=== PATIENT | male | born 1950 | race Caucasian/White ===

== ENCOUNTER 2019-10-01 18:06 | Emergency (ER) | payer MEDICARE ==
[~2019-10-01] VITALS: Ht 177.8 cm; Wt 86.2 kg
--- NOTE | 2019-10-01 18:06 | NUR ---
PT PLACED IN BED 12 BY EMS.
[2019-10-01 18:10] VITALS: BP 175/88
--- NOTE | 2019-10-01 18:24 | NUR ---
BIB AMBULANCE C/O DIZZINESS AND ASYMPTOMATIC HTN X 1 HOUR AGO PMH: HTN AND HIGH CHOLESTEROL MEDS TAKEN DURING DIZZINESS INCLUDE AMLODIPINE 5MG AND SIMVASTATIN 40 MG. NO REPORTS OF N/V/D. NO PAIN REPORTED. NO CHANGES TO LOC. NO EPISODES OF SYNCOPE.
--- NOTE | 2019-10-01 18:28 | NUR ---
NO KNOWN ALLERGIES
--- NOTE | 2019-10-01 19:06 | NUR ---
PT AMBULATED TO BATHROOM. URINE COLLECTED. URINE DIPSTICK PERFORMED
--- NOTE | 2019-10-01 19:19 | NUR ---
RECEIVED REPORT FROM [place]O VUONG.
[2019-10-01 19:37] LABS: BASOPHILS # (AUTO) 0.1 K/uL (0.00-0.22); BASOPHILS % (AUTO) 1.4 % (0.0-2.0); EOSINOPHILS # (AUTO) 0.3 K/uL (0-0.4); EOSINOPHILS % (AUTO) 5.3 % (0.0-4.0); HEMATOCRIT 41.1 % (36-52); HEMOGLOBIN 13.6 g/dL (12.0-18.0); LYMPHOCYTES # (AUTO) 1.1 K/uL (2.0-11.5); LYMPHOCYTES % (AUTO) 18.5 % (20.5-51.1); MEAN CORPUSCULAR HEMOGLOBIN 33 pg (27-31); MEAN CORPUSCULAR HGB CONC 33 g/dL (33-37); MEAN CORPUSCULAR VOLUME 99.3 fL (80-94); MONOCYTES # (AUTO) 0.8 K/uL (0.8-1.0); MONOCYTES % (AUTO) 12.9 % (1.7-9.3); NEUTROPHILS # (AUTO) 3.7 K/uL (1.8-7.7); NEUTROPHILS % (AUTO) 61.9 % (42.2-75.2); PLATELET COUNT (AUTO) 223 K/uL (140-450); RED BLOOD CELL COUNT(AUTO) 4.14 MIL/uL (4.20-6.10); RED CELL DISTRIBUTION WIDTH 16.2 % (11.6-13.7); WHITE BLOOD COUNT (AUTO) 5.9 K/uL (4.8-10.8)
--- NOTE | 2019-10-01 19:45 | NUR ---
ERMD AT BEDSIDE.
--- NOTE | 2019-10-01 19:46 | NUR ---
PATIENT IS SITTING QUIETLY WITH AT BEDSIDE.
[2019-10-01 19:56] LABS: PROTHROMBIN TIME 10.2 secs (10.8-13.4)
[2019-10-01 20:05] LABS: ANION GAP 13.1 (8-16); CARBON DIOXIDE 26.6 mmol/L (21-32); POTASSIUM 3.7 mmol/L (3.5-5.1)
[2019-10-01 20:06] LABS: ALBUMIN 3.8 g/dL (3.4-5.0); CREATININE 0.9 mg/dL (0.7-1.3); TOTAL BILIRUBIN 0.7 mg/dL (0.0-1.0)
--- NOTE | 2019-10-01 21:09 | NUR ---
PT REPORTS FEELING BETTER.
--- NOTE | 2019-10-01 21:10 | NUR ---
Patient discharged with v/s stable. Written and verbal after care instructions given and explained. Patient verbalized understanding. Ambulatory with steady gait. All questions addressed prior to discharge. Advised to follow up with PMD.
[2019-10-01 21:15] VITALS: BP 163/87
== END 2019-10-01 21:10 | disposition home or self-care (01) ==
LOC: MED 18:06
DX: F41.0 Panic disorder [episodic paroxysmal anxiety] (principal); I10 Essential (primary) hypertension; E78.00 Pure hypercholesterolemia, unspecified; Z98.890 Other specified postprocedural states
CPT/HCPCS: 36415; 71045; 80053; 81002; 83880; 84484; 85025; 85610; 85730; 93005; 99284; Q0092